=== PATIENT | male | born 1990 | race Caucasian/White ===

== ENCOUNTER → 2021-08-05 03:07 | Outpatient (CLI) | payer BC, SELFPAY ==
[2021-08-05 14:38] LABS: SARS-CoV-2 RNA PCR Negative
== END ==
PROVIDERS: PCP Family Medicine; Visit Provider Emergency Medicine
DX: Z20.828 Contact with and (suspected) exposure to other viral communicable diseases (principal)
CPT/HCPCS: C9803; U0003; U0005